=== PATIENT | female | born 1950 | race Caucasian/White ===

== ENCOUNTER → 2023-07-03 11:06 | Outpatient (REF) | payer MEDICARE, OTHER, SELFPAY ==
[2023-07-03 12:07] LABS: Urine Albumin Negative (Neg - Trace); Urine Bilirubin Negative (Negative); Urine Character Clear (Clear); Urine Color Yellow; Urine Glucose Negative (Negative); Urine Ketone Negative (Negative); Urine Leukocyte Negative (Negative); Urine Nitrite Negative (Negative); Urine Occult Blood Trace (Negative); Urine Urobilinogen Negative (Neg - 1+); Urine pH 6.5 (5.0-9.0)
[2023-07-03 12:15] LABS: Urine Bacteria Few (Negative); Urine White Cell 0-2 /HPF (0-5)
[2023-07-03 12:18] LABS: Osmolality Urine 241 mOsm/kg (300-900)
[2023-07-03 12:31] LABS: Urine Sodium 33 mmol/L (30-90)
[2023-07-03 13:13] LABS: Osmolality Serum 290 mOsm/kg (275-300)
[2023-07-03 13:22] LABS: Albumin 4.5 g/dl (3.5-5.0); Blood Urea Nitrogen 14 mg/dl (7-17); Calcium 9.8 mg/dl (8.4-10.2); Carbon Dioxide 27 mmol/L (22-30); Chloride 103 mmol/L (98-107); Glucose 92 mg/dl (70-99); Phosphorus 3.8 mg/dl (2.5-4.5); Potassium 4.7 mmol/L (3.5-5.1); Sodium 137 mmol/L (135-145); eGFR > 60.00
[2023-07-03 13:34] LABS: TSH Reflex To Free T4 0.79 uIU/ml (0.47-4.68)
[2023-07-05 22:03] LABS: 24 Hour Urine Total Volume Random mL; Urine Collection Length Random hr; Urine Free Kappa Light Chains 12.71 mg/L (0.00-32.90); Urine Free Lambda Light Chains 1.86 mg/L (0.00-3.79)
== END ==
LOC: REG 11:06
PROVIDERS: ATTENDING PHYSICIAN Internal Medicine; FAMILY PHYSICIAN Internal Medicine
DX: I10 Essential (primary) hypertension (principal); E87.1 Hypo-osmolality and hyponatremia; R80.9 Proteinuria, unspecified
CPT/HCPCS: 36415; 80069; 81003; 81015; 82784; 83521; 83930; 83935; 84155; 84156; 84165; 84300; 84443; 86334; 86335

== ENCOUNTER → 2023-07-07 14:16 | Outpatient (REF) | payer MEDICARE, OTHER, SELFPAY ==
[2023-07-07 14:59] LABS: Hematocrit 36.1 % (37.0-47.0); Hemoglobin 12.4 g/dL (12.0-16.0); Mean Corp Hgb Conc. 34.3 g/dL (33.0-37.0); Mean Corpuscular Hgb 29.9 pg (27.0-31.0); Mean Platelet Volume 10.2 fL (7.4-10.4); Platelet Count 542 10^3/uL (130-400); Red Blood Cell Count 4.15 10^6/uL (4.20-5.40); Red Cell Dist. Width 13.7 % (11.5-14.5); White Blood Cell Count 7.2 10^3/uL (4.8-10.8)
[2023-07-07 16:01] LABS: Iron 92 ug/dl (37-170)
[2023-07-07 16:10] LABS: Percent Saturation 26 % (20-50); Total Iron Binding Capacity 351 ug/dl (265-497)
[2023-07-07 16:42] LABS: Ferritin 59.5 ng/ml (11.1-264.0)
== END ==
LOC: REG 14:16
PROVIDERS: ATTENDING PHYSICIAN Internal Medicine; FAMILY PHYSICIAN Internal Medicine
DX: K92.1 Melena (principal)
CPT/HCPCS: 36415; 82728; 83540; 83550; 85027

== ENCOUNTER → 2023-10-12 09:47 | Outpatient (REF) | payer MEDICARE, OTHER, SELFPAY ==
[2023-10-12 11:47] LABS: % Basophils 1.7 % (0-2); % Eosinophils 4.6 % (0-6); % Immature Granulocytes 0.1 % (0-0.5); % Lymphocytes 35.6 % (20.5-51.1); Absolute Basophils 0.1 10^3/uL (0-0.2); Absolute Eosinophils 0.3 10^3/uL (0-0.7); Absolute Lymphocytes 2.6 10^3/uL (1.2-3.4); Absolute Monocytes 0.6 10^3/uL (0.1-0.6); Absolute Neutrophils 3.6 10^3/uL (1.4-6.5); Hematocrit 38.7 % (37.0-47.0); Hemoglobin 13.4 g/dL (12.0-16.0); Mean Corp Hgb Conc. 34.6 g/dL (33.0-37.0); Mean Corpuscular Hgb 29.3 pg (27.0-31.0); Mean Corpuscular Volume 84.5 fL (81.0-99.0); Mean Platelet Volume 10.4 fL (7.4-10.4); Nucleated Red Blood Cells % 0 %; Platelet Count 605 10^3/uL (130-400); Red Blood Cell Count 4.58 10^6/uL (4.20-5.40); Red Cell Dist. Width 13.2 % (11.5-14.5); White Blood Cell Count 7.2 10^3/uL (4.8-10.8)
[2023-10-12 12:09] LABS: Albumin 4.7 g/dl (3.5-5.0); Blood Urea Nitrogen 20 mg/dl (7-17); Calcium 9.8 mg/dl (8.4-10.2); Carbon Dioxide 26 mmol/L (22-30); Chloride 102 mmol/L (98-107); Glucose 96 mg/dl (70-99); Phosphorus 4.2 mg/dl (2.5-4.5); Potassium 5.2 mmol/L (3.5-5.1); Sodium 141 mmol/L (135-145); eGFR > 60.00
== END ==
LOC: REG 09:47
PROVIDERS: ATTENDING PHYSICIAN Internal Medicine; FAMILY PHYSICIAN Internal Medicine
DX: I10 Essential (primary) hypertension (principal); R79.89 Other specified abnormal findings of blood chemistry; R80.9 Proteinuria, unspecified; I63.9 Cerebral infarction, unspecified
CPT/HCPCS: 36415; 80069; 85025

== ENCOUNTER → 2023-12-08 09:50 | Outpatient (REF) | payer MEDICARE, OTHER, SELFPAY ==
[2023-12-08 11:27] LABS: % Eosinophils 4.2 % (0-6); % Immature Granulocytes 0.3 % (0-0.5); % Lymphocytes 37.4 % (20.5-51.1); % Monocytes 7.6 % (1.7-9.3); % Neutrophils 48.5 % (42.2-75.2); Absolute Basophils 0.1 10^3/uL (0-0.2); Absolute Eosinophils 0.3 10^3/uL (0-0.7); Absolute Lymphocytes 2.4 10^3/uL (1.2-3.4); Absolute Monocytes 0.5 10^3/uL (0.1-0.6); Absolute Neutrophils 3.1 10^3/uL (1.4-6.5); Hematocrit 41.7 % (37.0-47.0); Hemoglobin 14.5 g/dL (12.0-16.0); Mean Corp Hgb Conc. 34.8 g/dL (33.0-37.0); Mean Corpuscular Hgb 29.7 pg (27.0-31.0); Mean Corpuscular Volume 85.3 fL (81.0-99.0); Mean Platelet Volume 10.4 fL (7.4-10.4); Nucleated Red Blood Cells % 0 %; Platelet Count 527 10^3/uL (130-400); Red Blood Cell Count 4.89 10^6/uL (4.20-5.40); Red Cell Dist. Width 13.5 % (11.5-14.5); White Blood Cell Count 6.5 10^3/uL (4.8-10.8)
[2023-12-08 11:58] LABS: ALT (SGPT) 29 U/L (0-35); AST (SGOT) 34 U/L (14-36); Alkaline Phosphatase 87 U/L (38-126); Blood Urea Nitrogen 21 mg/dl (7-17); Calcium 9.7 mg/dl (8.4-10.2); Carbon Dioxide 26 mmol/L (22-30); Chloride 99 mmol/L (98-107); Glucose 93 mg/dl (70-99); HDL Cholesterol 77 mg/dl; LDL Cholesterol, Calculated 147 mg/dl; Potassium 5.1 mmol/L (3.5-5.1); Sodium 138 mmol/L (135-145); Total Bilirubin 0.6 mg/dl (0.2-1.3); Total Cholesterol 252 mg/dl (50-199); Total Protein 7.8 g/dl (6.3-8.2); Triglyceride 140 mg/dl (10-149); Very Low Density Lipoprotein 28 mg/dl (0-30); eGFR > 60.00
[2023-12-08 12:15] LABS: Vitamin D, 25-OH*** 51.6 ng/mL (30-80)
[2023-12-08 12:29] LABS: TSH 1.28 uIU/ml (0.47-4.68)
== END ==
LOC: REG 09:50
DX: I63.9 Cerebral infarction, unspecified (principal); D75.839 Thrombocytosis, unspecified; E55.9 Vitamin D deficiency, unspecified; I10 Essential (primary) hypertension
CPT/HCPCS: 36415; 80053; 80061; 82306; 84443; 85025

== ENCOUNTER → 2024-06-13 12:05 | Outpatient (REF) | payer MEDICARE, OTHER, SELFPAY ==
[2024-06-13 13:25] LABS: % Basophils 1.6 % (0-2); % Eosinophils 2.3 % (0-6); % Immature Granulocytes 0.3 % (0-0.5); % Lymphocytes 29.5 % (20.5-51.1); % Monocytes 7.4 % (1.7-9.3); % Neutrophils 58.9 % (42.2-75.2); Absolute Basophils 0.1 10^3/uL (0-0.2); Absolute Eosinophils 0.2 10^3/uL (0-0.7); Absolute Monocytes 0.5 10^3/uL (0.1-0.6); Absolute Neutrophils 4.1 10^3/uL (1.4-6.5); Hematocrit 42.1 % (37.0-47.0); Hemoglobin 14.5 g/dL (12.0-16.0); Mean Corp Hgb Conc. 34.4 g/dL (33.0-37.0); Mean Corpuscular Hgb 29.1 pg (27.0-31.0); Mean Corpuscular Volume 84.5 fL (81.0-99.0); Mean Platelet Volume 10.4 fL (7.4-10.4); Nucleated Red Blood Cells % 0 %; Platelet Count 548 10^3/uL (130-400); Red Blood Cell Count 4.98 10^6/uL (4.20-5.40); Red Cell Dist. Width 13.8 % (11.5-14.5); White Blood Cell Count 6.9 10^3/uL (4.8-10.8)
[2024-06-13 14:06] LABS: ALT (SGPT) 25 U/L (0-35); AST (SGOT) 25 U/L (14-36); Albumin 4.9 g/dl (3.5-5.0); Alkaline Phosphatase 83 U/L (38-126); Blood Urea Nitrogen 16 mg/dl (7-17); Calcium 9.6 mg/dl (8.4-10.2); Carbon Dioxide 25 mmol/L (22-30); Chloride 102 mmol/L (98-107); Glucose 100 mg/dl (70-99); HDL Cholesterol 63 mg/dl; Iron 130 ug/dl (37-170); LDL Cholesterol, Calculated 126 mg/dl; Potassium 4.7 mmol/L (3.5-5.1); Sodium 138 mmol/L (135-145); Total Bilirubin 0.6 mg/dl (0.2-1.3); Total Cholesterol 224 mg/dl (50-199); Total Protein 7.6 g/dl (6.3-8.2); Triglyceride 177 mg/dl (10-149); Very Low Density Lipoprotein 35 mg/dl (0-30); eGFR > 60.00
[2024-06-13 14:33] LABS: Ferritin 17.1 ng/ml (11.1-264.0)
== END ==
LOC: REG 12:05
PROVIDERS: FAMILY PHYSICIAN Internal Medicine
DX: Z86.73 Personal history of transient ischemic attack (TIA), and cerebral infarction without residual deficits (principal); D75.839 Thrombocytosis, unspecified; I10 Essential (primary) hypertension
CPT/HCPCS: 36415; 80053; 80061; 82728; 83540; 85025

== ENCOUNTER 2024-10-12 15:57 | Emergency (ER) | payer MEDICARE, OTHER, SELFPAY ==
[2024-10-12 15:58] VITALS: BMI 32.2
[2024-10-12 15:59] VITALS: BP 228/121
[2024-10-12 16:42] VITALS: BP 187/118
[2024-10-12 17:08] LABS: Hematocrit 38.0 % (37.0-47.0); Hemoglobin 12.4 g/dL (12.0-16.0); Mean Corp Hgb Conc. 32.6 g/dL (33.0-37.0); Mean Corpuscular Volume 79.5 fL (81.0-99.0); Nucleated Red Blood Cells % 0 %; Platelet Count 556 10^3/uL (130-400); Red Cell Dist. Width 14.1 % (11.5-14.5)
[2024-10-12 17:10] LABS: Urine Character Clear (Clear)
[2024-10-12 17:22] LABS: ALT (SGPT) 25 U/L (0-35); AST (SGOT) 28 U/L (14-36); Albumin 4.9 g/dl (3.5-5.0); Alkaline Phosphatase 77 U/L (38-126); Blood Urea Nitrogen 21 mg/dl (7-17); Calcium 9.6 mg/dl (8.4-10.2); Carbon Dioxide 25 mmol/L (22-30); Chloride 101 mmol/L (98-107); Estimated Creatinine Clearance 43 ml/min; Glucose 95 mg/dl (70-99); Magnesium 2.2 mg/dl (1.6-2.3); Potassium 4.7 mmol/L (3.5-5.1); Sodium 135 mmol/L (135-145); Total Protein 7.8 g/dl (6.3-8.2); Urine Red Blood Cell 0-2 /HPF (0-2); eGFR 48.09
[2024-10-12 17:39] LABS: Troponin I < 0.012 ng/ml
[2024-10-12 17:52] LABS: TSH 1.34 uIU/ml (0.47-4.68)
[2024-10-12 18:03] VITALS: BP 141/67
--- NOTE | 2024-10-12 18:23 | ED.GENMED ---
History of Present Illness
General
Chief Complaint: Blood Pressure Problem
Source: patient
Exam Limitations: none
Time Seen by Provider: 10/12/24 16:35
Nursing documentation reviewed up to this point in time: agreed with
History of Present Illness
History of Present Illness:
Patient with history of CVA and hypertension on nifedipine, presents to ED secondary to persistently elevated blood pressure over the past 2 months, after her medication was switched by her health insurance. Since taking different form of
nifedipine, her blood pressure has been difficult to control. Over the past 3 to 4 days, patient has noted intermittent sharp pain in her head lasting few seconds. 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
to return to her original medication that she was taking 2 months ago. Patient states that she has had difficult time with elevated blood pressure, despite trying different types of blood pressure medications with side effects.
Past History
Past History
ED Past Medical History: CVA (left hemispheric October 2021), HTN (non-compliant with medications), Hypercholesterolemia (elevated LDL) and Other (endometriosis)
Patient has exhibited threatening behavior?: No
Social History
Tobacco: Non-smoker
Alcohol: None
Drug: None
Personal:
Living: with family
Family History
Family History: Diabetes, Hypertension and Cancer
Review of Systems
Review of Systems
Allergies reviewed?: Yes
All Other Systems: ROS reviewed and negative except as documented in HPI and ROS
Constitutional: Reports no symptoms; Denies fever
Respiratory: Reports no symptoms; Denies trouble breathing
Cardiac: Reports no symptoms; Denies chest pain
ABD/GI: Reports no symptoms; Denies nausea or vomiting
Musculoskeletal: Reports no symptoms
Skin: Reports no symptoms
Neurological: Reports headache; Denies dizzy, weakness or numbness
Phy Exam
Physical Exam
Physical Exam:
Physical Exam
General: no apparent distress, not acutely ill. afebrile. hypertensive
Head: nc/at. eomi
Neck: supple. no meningeal signs.
Heart: s1/s2 regular rate and rhythm
Lungs: no acute respiratory distress. clear bilaterally
Abdomen: normal bowel sounds. not tender.
Neuro: alert and oriented x 3. no focal neurological deficits. normal speech
Skin: no rash
Psychiatric: well kept. interactive and cooperative
Extremities: no edema. no calf tenderness.
Course
Orders/Labs/Results
Orders:
Orders
10/12/24 16:02
Electrocardiogram (*1) Urgent
Reason for Study: Hypertension, Benign
EKG- Treatment ONCE
10/12/24 16:46
Electrocardiogram (*1) Urgent
Reason for Study: Hypertension, Benign
CT Head W/o Iv Contrast Urgent
Comment:
Reason For Exam: headache w hypertension
EKG- Treatment ONCE
10/12/24 16:54
Complete Blood Count/With Diff Urgent
Comprehensive Metabolic Panel Urgent
Magnesium Urgent
TSH Urgent
Troponin I Urgent
Urinalysis Reflex To Culture Urgent
Date Specimen was Collected: 10/12/24
Time Specimen was Collected: 16:52
Urine Microscopic Reflex Cult Urgent
10/12/24 18:34
NIFEdipine EXTENDED RELEASE [Procardia Xl (Extended Release)] 30 mg PO NOW STA
Abnormal Lab Results
10/12/24
16:54
MCV 79.5 L fL
(81.0-99.0)
MCH 25.9 L pg
(27.0-31.0)
MCHC 32.6 L g/dL
(33.0-37.0)
Plt Count 556 H 10^3/uL
(130-400)
Absolute Monos (auto) 0.7 H 10^3/uL
(0.1-0.6)
BUN 21 H mg/dl
(7-17)
Creatinine 1.2 H mg/dL
(0.6-1.0)
Ur Occult Blood Reflex 2+ A
(Negative)
Urine Bacteria (Reflex) Few A
(Negative)
Urine Albumin (Reflex) 1+ A
(Neg - Trace)
10/12/24 16:54
10/12/24 16:54
Vital Signs
Initial and Last Documented VS:
Initial Vital Signs
Temp Pulse Resp BP Pulse Ox
98 F 91 16 228/121 98
10/12/24 15:59 10/12/24 15:59 10/12/24 15:59 10/12/24 15:59 10/12/24 15:59
Last Documented Vital Signs
Temp Pulse Resp BP Pulse Ox
98 F 65 18 154/78 94
10/12/24 15:59 10/12/24 18:48 10/12/24 18:30 10/12/24 18:48 10/12/24 18:30
MDM/Problems Addressed
MDM/Problems Addressed:
CT head report reviewed and discussed with patient. Otherwise remains afebrile, neurologically intact, with significant improvement in blood pressure without treatment.
Discussed with on-call nephrology, Dr. Carter, who recommends that patient to be given prescription for nifedipine, along with outpatient follow-up with her primary glass laminating operator Dr. Alejo.
*Pulse Oximetry
SaO2: 94
Oxygen Mode of Delivery: Room air
Patient hypoxic: no
*Critical Care Note
Total Time (30-74mins, 75-104mins- exclusive of procedures): Not Applicable
ED Attending Note
-
Portions of this chart may have been created with voice recognition software.� Occasional wrong word or��sound alike� substitutions may have occurred due to the inherent limitations of voice recognition software.
Discharge Plan
Departure
Patient Disposition: Home (Routine Discharge)
Date of Disposition: 10/12/24
Time of Disposition: 18:38
Patient with high blood pressure during this ER visit?: Yes
Condition: Good
Discharge Problem:
Hypertension
Instructions: High Blood Pressure (DC)
Prescriptions:
New
nifedipine [Procardia XL] 30 mg tablet extended release 24hr
30 mg PO DAILY Qty: 30 0RF
No Action
acetaminophen [Tylenol Extra Strength] 500 mg Tablet
1,000 mg PO Q6H PRN (Reason: mild pain)
clopidogrel 75 mg Tablet
75 mg PO DAILY 21 Days Qty: 21 0RF
spironolactone 25 mg Tablet
25 mg PO DAILY 30 Days Qty: 30 0RF
aspirin 81 mg Tablet,Chewable
81 mg PO DAILY 100 Days Qty: 100 0RF
nifedipine 60 mg Tablet Extended Release
60 mg PO BID AT 0800,1600 30 Days Qty: 60 0RF
atorvastatin [Lipitor] 40 mg tablet
40 mg PO HS 30 Days Qty: 30 0RF
Referrals:
Rosanne Hidalgo DO [Family Provider, Internal Medicine]
Angeles Alejo MD [Active, Nephrology]
Activity Restrictions/Additional Instructions:
As discussed, please follow-up with your glass laminating operator for continual evaluation and treatment. Your prescription has been sent electronically to [facility] pharmacy in [place].
Interventions
Interventions:
*Risk Screen - Suicide Last Done: 10/12/24 16:01
*General Assessment Last Done: 10/12/24 16:49
*Neglect/Abuse Screening Last Done: 10/12/24 16:01
*ED- Fall Risk Assessment Last Done: 10/12/24 16:49
*Nursing Disposition Last Done: 10/12/24 18:53
ED- Cardiac Assessment Last Done: 10/12/24 16:49
ED- Neurological Assessment Last Done: 10/12/24 16:49
ED- Pulmonary Assessment Last Done: 10/12/24 16:49
Discharge Date and Time
Discharge Date/Time: 10/12/24 18:53
Print Language: NEPALI
[2024-10-12 18:30] VITALS: BP 154/78
[2024-10-12] MEDS: PROCARDIA XL (EXTENDED RELEASE) 30 MG PO (18:48)
== END 2024-10-12 18:53 | disposition home or self-care (01) ==
LOC: EMR 15:57
PROVIDERS: EMERGENCY PHYSICIAN Emergency Medicine; FAMILY PHYSICIAN Internal Medicine
DX: I10 Essential (primary) hypertension (principal); E78.00 Pure hypercholesterolemia, unspecified; Z86.73 Personal history of transient ischemic attack (TIA), and cerebral infarction without residual deficits; Z79.899 Other long term (current) drug therapy
CPT/HCPCS: 99283; 70450; 80053; 81003; 81015; 83735; 84443; 84484; 85025; 93005

== ENCOUNTER → 2024-10-26 13:01 | Outpatient (REF) | payer MEDICARE, OTHER, SELFPAY ==
[2024-10-26 14:04] LABS: Hematocrit 38.7 % (37.0-47.0); Hemoglobin 12.3 g/dL (12.0-16.0); Mean Corp Hgb Conc. 31.8 g/dL (33.0-37.0); Mean Corpuscular Volume 80.1 fL (81.0-99.0); Nucleated Red Blood Cells % 0 %; Platelet Count 574 10^3/uL (130-400); Red Cell Dist. Width 14.4 % (11.5-14.5)
[2024-10-26 15:04] LABS: ALT (SGPT) 20 U/L (0-35); AST (SGOT) 23 U/L (14-36); Albumin 4.6 g/dl (3.5-5.0); Alkaline Phosphatase 82 U/L (38-126); Blood Urea Nitrogen 16 mg/dl (7-17); Calcium 9.5 mg/dl (8.4-10.2); Carbon Dioxide 26 mmol/L (22-30); Chloride 105 mmol/L (98-107); Glucose 90 mg/dl (70-99); HDL Cholesterol 57 mg/dl; Iron 54 ug/dl (37-170); LDL Cholesterol, Calculated 102 mg/dl; Potassium 5.5 mmol/L (3.5-5.1); Sodium 137 mmol/L (135-145); Total Protein 7.4 g/dl (6.3-8.2); Very Low Density Lipoprotein 36 mg/dl (0-30); eGFR 59.86
[2024-10-26 15:30] LABS: Total Iron Binding Capacity 449 ug/dl (265-497)
== END ==
LOC: REG 13:01
PROVIDERS: ATTENDING PHYSICIAN Physician Assistant Medical; FAMILY PHYSICIAN Internal Medicine; OTHER PHYSICIAN Internal Medicine
DX: I10 Essential (primary) hypertension (principal); D75.839 Thrombocytosis, unspecified; E78.5 Hyperlipidemia, unspecified; I63.9 Cerebral infarction, unspecified
CPT/HCPCS: 80053; 80061; 82570; 83540; 83550; 84156; 85025

== ENCOUNTER → 2024-12-15 09:14 | Outpatient (REF) | payer MEDICARE, SELFPAY ==
[2024-12-15] VITALS (7 sets, daily range): BP systolic 66–212; BP diastolic 70–93
[2024-12-15 09:39] LABS: Hematocrit 41.7 % (37.0-47.0); Hemoglobin 13.1 g/dL (12.0-16.0); Mean Corp Hgb Conc. 31.4 g/dL (33.0-37.0); Mean Corpuscular Volume 82.6 fL (81.0-99.0); Nucleated Red Blood Cells % 0 %; Platelet Count 545 10^3/uL (130-400); Red Cell Dist. Width 14.8 % (11.5-14.5)
[2024-12-15 09:49] LABS: INR 0.96; PT 13.1 Sec (11.4-14.6)
[2024-12-15] MEDS: ATIVAN 0.5 MG PO (09:49)
== END ==
LOC: RADI 09:14
PROVIDERS: ATTENDING PHYSICIAN Internal Medicine Hematology & Oncology; FAMILY PHYSICIAN Internal Medicine
DX: D50.9 Iron deficiency anemia, unspecified (principal)
CPT/HCPCS: 36415; 38222; 77012; 85025; 85610; 88305; 88311; 88312; 88313

== ENCOUNTER → 2025-01-19 08:24 | Outpatient (REF) | payer MEDICARE, SELFPAY ==
[2025-01-19 09:42] LABS: Potassium, Plasma 4.7 mMOL/L
[2025-01-19 10:00] LABS: Albumin 4.7 g/dl (3.5-5.0); Blood Urea Nitrogen 22 mg/dl (7-17); Calcium 9.8 mg/dl (8.4-10.2); Carbon Dioxide 29 mmol/L (22-30); Chloride 99 mmol/L (98-107); Glucose 94 mg/dl (70-99); Potassium 5.4 mmol/L (3.5-5.1); Sodium 137 mmol/L (135-145); eGFR 48.09
== END ==
LOC: REG 08:24
PROVIDERS: ATTENDING PHYSICIAN Internal Medicine; FAMILY PHYSICIAN Internal Medicine
DX: E87.5 Hyperkalemia (principal)
CPT/HCPCS: 36415; 80069; 84132